=== PATIENT | male | born 1985 | race Caucasian/White ===

== ENCOUNTER 2019-10-18 13:24 | Emergency (ER) | payer OTHER ==
[2019-10-18] MEDS ORDERED: Lidocaine 1% PF 5 ML VIAL ONE (13:51)
[2019-10-18] MEDS ORDERED: Cephalexin 250 MG CAP ONE (13:51)
[2019-10-18] MEDS ORDERED: Lidocaine 2% w/ Epi 1:200K 10 ML VIAL ONE ×2 (14:07→14:23)
== END 2019-10-18 15:00 | disposition home or self-care (01) ==
LOC: BURERS 13:24
DX: S21.011A Laceration without foreign body of right breast, initial encounter (principal); S80.811A Abrasion, right lower leg, initial encounter; W18.30XA Fall on same level, unspecified, initial encounter
CPT/HCPCS: 12002; J2001